=== PATIENT | female | born 1960 | race Caucasian/White ===

== ENCOUNTER 2020-04-07 13:51 | Emergency (ER) | payer OTHER ==
[2020-04-07] MEDS ORDERED: Sodium Chloride 0.9% 10 ML Syringe FLUSH PRN (13:57)
[2020-04-07] MEDS ORDERED: Nitroglycerin 0.4 MG Tab.SL SL PRN (13:58)
--- NOTE | 2020-04-07 14:10 | EDM.PDOC ---
ED HPI GENERAL MEDICAL PROBLEM - General Stated Complaint: CHEST PX; SOB Time Seen by Provider: 04/07/20 13:55 Source of Information: Reports: Patient History Limitations: Reports: No Limitations - History of Present Illness INITIAL COMMENTS - FREE TEXT/NARRATIVE: Presents emergency room for left-sided chest pain that radiates down her left arm started today. Her left arm just feels heavy and fatigue. Pain comes and goes on arrival she is 3/10. She does have some association with shortness of breath the pain is when she strenuously activity and then she rest and the pain starts when she starts resting. It does not occur when she is having strenuous activity. She notes having recent COVID-19 positive detection on March 26 she is passed her 10-day quarantine. She has had no recent fever or chills she has had some ongoing fatigue. She does still have loss of taste and smell. She does have a strong family history of cardiac problems she has no known cardiac disease as she is aware of she did have an angiogram in the past after chest pain work-up years ago which no identification of any coronary artery disease. She is notes that her A1c has been not quite as controlled as she wo uld like it. She does have history of hypertension high cholesterol diabetes and takes medicine for that. She does not check her blood sugar at home. left chest pain Pain Score (Numeric/FACES): 3 - Related Data Allergies Allergy/AdvReac Type Severity Reaction Status Date / Time alcohol Allergy Shortness Verified 04/07/20 14:24 of Breath codeine Allergy Other Verified 04/07/20 14:24 ED ROS GENERAL - Review of Systems Review Of Systems: See Below Constitutional: Reports: Fatigue. Denies: Fever, Chills HEENT: Reports: No Symptoms Respiratory: Reports: Shortness of Breath Cardiovascular: Reports: Chest Pain Endocrine: Reports: Other (has had increased of thirst) GI/Abdominal: Reports: No Symptoms. Denies: Abdominal Pain Musculoskeletal: Reports: No Symptoms Skin: Reports: No Symptoms Neurological: Reports: No Symptoms Psychiatric: Reports: No Symptoms ED EXAM, GENERAL - Physical Exam Exam: See Below Exam Limited By: No Limitations General Appearance: Alert, WD/WN, No Apparent Distress Nose: Normal Inspection, Normal Mucosa, No Blood Throat/Mouth: Normal Inspection Head: Atraumatic, Normocephalic Neck: Normal Inspection, Supple, Non-Tender, Full Range of Motion Respiratory/Chest: No Respiratory Distress, Lungs Clear, Normal Breath Sounds Cardiovascular: Normal Peripheral Pulses, No Edema, No Murmur, Tachycardia Peripheral Pulses: 2+: Radial (L), Radial (R), Posterior Tibial (L), Posterior Tibial (R), Dorsalis Pedis (L), Dorsalis Pedis (R) GI/Abdominal: Normal Bowel Sounds, Soft, Non-Tender Back Exam: Normal Inspection, Full Range of Motion Extremities: Normal Inspection, Normal Range of Motion, Non-Tender, No Pedal Edema, Normal Capillary Refill Neurological: Alert, Oriented, Normal Cognition Psychiatric: Normal Affect, Normal Mood Skin Exam: Warm, Dry, Intact. No: Diaphoretic EKG INTERPRETATION EKG Date: 04/07/20 Time: 14:19 Rhythm: NSR [place]: Normal P-Wave: Present QRS: Normal ST-T: Normal QT: Normal Comparison: NA - No Prior EKG Course - Vital Signs Last Recorded V/S: Last Vital Signs Temp 98.1 F 04/07/20 13:51 Pulse 102 H 04/07/20 13:51 Resp 16 04/07/20 13:51 BP 132/95 H 04/07/20 13:51 Pulse Ox 96 04/07/20 13:51 - Orders/Labs/Meds Orders: Active Orders 24 hr Category Date Time Status Cardiac Monitoring [RC] . DIRECTED Care 04/07/20 13:57 Active EKG Documentation Completion [RC] ASDIRECTED Care 04/07/20 13:57 Active TSH ULTRASENSITIVE [CHEM] Stat Lab 04/07/20 14:00 Received Nitroglycerin [Nitrostat] Med 04/07/20 13:58 Active 0.4 mg SL Q5M PRN Sodium Chloride 0.9% [Saline Flush] Med 04/07/20 13:57 Active 10 ml FLUSH Q8HR PRN Saline Lock Insert [OM.PC] Routine Oth 04/07/20 13:57 Ordered EKG 12 Lead [EK] Stat Ther 04/07/20 13:57 Ordered Medication Orders Nitroglycerin (Nitrostat) 0.4 mg SL Q5M PRN PRN Reason: Chest Pain Sodium Chloride (Saline Flush) 10 ml FLUSH Q8HR PRN PRN Reason: keep vein open Labs: Laboratory Tests 04/07/20 04/07/20 04/07/20 Range/Units 14:10 14:10 14:10 WBC 8.82 (5.00-10.00) 10^3/uL RBC 5.12 (3.80-5.50) 10^6/uL Hgb 14.6 (12.0-16.0) g/dL Hct 43.5 (37.0-47.0) % MCV 85.0 (82.0-92.0) fL MCH 28.5 (27.0-31.0) pg MCHC 33.6 (32.0-36.0) g/dL RDW 12.3 (11.5-14.5) % Plt Count 306 (150-400) 10^3/uL MPV 10.8 H (7.4-10.4) fL Immature Gran % (Auto) 0.2 (0.0-5.0) % Neut % (Auto) 70.7 H (50.0-70.0) % Lymph % (Auto) 22.1 (20.0-40.0) % [place] % (Auto) 5.0 (2.0-8.0) % Eos % (Auto) 1.8 (1.0-3.0) % Baso % (Auto) 0.2 (0.0-1.0) % Neut # (Auto) 6.23 (2.50-7.00) 10^3/uL Lymph # (Auto) 1.95 (1.00-4.00) 10^3/uL [place] # (Auto) 0.44 (0.10-0.80) 10^3/uL Eos # (Auto) 0.16 (0.10-0.30) 10^3/uL Baso # (Auto) 0.02 (0.00-0.10) 10^3/uL Immature Gran # (Auto) 0.02 (0.00-0.50) 10^3/uL D-Dimer, Quantitative < 100 (<400) ng/mL Sodium 138 (136-145) mmol/L Potassium 3.7 (3.3-5.3) mmol/L Chloride 101 (98-115) mmol/L Carbon Dioxide 25.3 (21.0-32.0) mmol/L Anion Gap 15.4 H (5-15) mmol/L BUN 15 (6-25) mg/dL Creatinine 0.72 (0.51-1.17) mg/dL Est Cr Clr Drug Dosing 74.44 mL/min Estimated GFR (MDRD) > 60 mL/min Glucose 209 H (75 - 99) mg/dL Calcium 8.9 (8.7-10.3) mg/dL Total Bilirubin 0.3 (0.2-1.0) mg/dL AST 13 L (15-37) U/L ALT 34 (12-78) U/L Alkaline Phosphatase 116 (46-116) IU/L Troponin I 0.05 (0.00-0.070) ng/mL Total Protein 7.2 (6.4-8.2) g/dL Albumin 3.77 (3.00-4.80) g/dL Meds: Medications Generic Name Dose Route Start Last Admin Trade Name Freq PRN Reason Stop Dose Admin Nitroglycerin 0.4 mg 04/07/20 13:58 Nitrostat SL Q5M PRN Chest Pain Sodium Chloride 10 ml 04/07/20 13:57 Saline Flush FLUSH Q8HR PRN keep vein open Discontinued Medications Generic Name Dose Route Start Last Admin Trade Name Freq PRN Reason Stop Dose Admin Aspirin 324 mg 04/07/20 13:56 04/07/20 15:07 Aspirin PO 04/07/20 13:57 Not Given ONETIME ONE - Re-Assessments/Exams Free Text/Narrative Re-Assessment/Exam: 04/07/20 15:13 Reassess patient patient's chest pain back pain free patient is comfortable discharge return precaution discussed patient return if she has any recurrence of chest pain or back pain is concerning. Patient understands a follow-up with Dr. Anette Mercer in the clinic on Tuesday I also discussed this case with Dr. Mercer as well. I did consider ACS and PE and AAA with this chest pain. Negative troponin negative d-dimer equal radial pulses no widened mediastinum, absence of chest or back pain discharge. Departure - Departure Time of Disposition: 15:01 Disposition: Home, Self-Care 01 Condition: Good Clinical Impression: History of 2019 novel coronavirus disease (COVID-19) Chest pain Qualifiers: Chest pain type: unspecified Qualified Code(s): R07.9 - Chest pain, unspecified Instructions: Nonspecific Chest Pain, Adult Referrals: Anette Mcintyre MD [Primary Care Provider] - Additional Instructions: follow with Dr. Mercer on Tuesday in the clinic, please call her office today and schedule close follow up. return here if symptoms worsen or change, or do not improve, no matter what time it is. Sepsis Event Note (ED) - Focused Exam Vital Signs: Vital Signs Temp Pulse Resp BP Pulse Ox 04/07/20 13:51 98.1 F 102 H 16 132/95 H 96 - My Orders Last 24 Hours: My Active Orders 04/07/20 13:57 Cardiac Monitoring [RC] . DIRECTED EKG Documentation Completion [RC] ASDIRECTED Sodium Chloride 0.9% [Saline Flush] 10 ml FLUSH Q8HR PRN Saline Lock Insert [OM.PC] Routine EKG 12 Lead [EK] Stat 04/07/20 13:58 Nitroglycerin [Nitrostat] 0.4 mg SL Q5M PRN 04/07/20 14:00 TSH ULTRASENSITIVE [CHEM] Stat - Assessment/Plan Last 24 Hours: My Active Orders 04/07/20 13:57 Cardiac Monitoring [RC] . DIRECTED EKG Documentation Completion [RC] ASDIRECTED Sodium Chloride 0.9% [Saline Flush] 10 ml FLUSH Q8HR PRN Saline Lock Insert [OM.PC] Routine EKG 12 Lead [EK] Stat 04/07/20 13:58 Nitroglycerin [Nitrostat] 0.4 mg SL Q5M PRN 04/07/20 14:00 TSH ULTRASENSITIVE [CHEM] Stat
--- NOTE | 2020-04-07 14:46 | CR ---
[id number] RAD/RAD Chest PA or AP 1V EXAM: RAD Chest PA or AP 1V INDICATION: CHEST PAIN. COMPARISON: None. DISCUSSION: Cardiomediastinal silhouette is normal in size and contour. No infiltrate, effusion, pneumothorax, or edema. IMPRESSION: No acute cardiopulmonary abnormality. Juan Inman DO 04/07/20 1445 Thank you for allowing us to participate in the care of your patient.
[2020-04-07 14:48] LABS: ANION GAP 15.4 mmol/L (5-15); CHLORIDE,CL 101 mmol/L (98-115); SODIUM,NA 138 mmol/L (136-145)
[2020-04-07] MEDS: Aspirin 81 MG Tab.Chew PO ONE ×2 (15:07→15:18)
== END 2020-04-07 15:15 | disposition home or self-care (01) ==
LOC: KA.ED 13:51
DX: R07.9 Chest pain, unspecified (principal); Z86.19 Personal history of other infectious and parasitic diseases; R53.83 Other fatigue; R06.02 Shortness of breath; Z88.5 Allergy status to narcotic agent; Z91.09 Other allergy status, other than to drugs and biological substances
CPT/HCPCS: 36415; 71045; 80053; 84443; 84484; 85025; 85379; 93005; 99285; A9270; 99283